=== PATIENT | female | born 1975 | race Caucasian/White ===

== ENCOUNTER 2022-04-03 13:15 | Emergency (ER) | payer MEDICAID ==
[~2022-04-03] VITALS: Ht 165.1 cm; Wt 100.0 kg
[2022-04-03 13:23] VITALS: BP 142/76
[2022-04-03] MEDS ORDERED: DEXAMETHASONE 4MG TABLET PO ONE (14:00)
[2022-04-03] MEDS ORDERED: METF750T46 MT (14:21)
[2022-04-03] MEDS ORDERED: DULA0.75 SQ (14:21)
== END 2022-04-03 15:40 | disposition home or self-care (01) ==
LOC: ER 13:15
DX: J02.9 Acute pharyngitis, unspecified (principal); E11.9 Type 2 diabetes mellitus without complications; Z79.84 Long term (current) use of oral hypoglycemic drugs
CPT/HCPCS: 99283; J8540